=== PATIENT | female | born 1995 | race Caucasian/White ===

== ENCOUNTER 2024-10-16 01:30 | Inpatient (IN) | payer BC ==
[2024-10-16] MEDS ORDERED: Ondansetron PF 4 MG/2 ML Vial IVP PRN (02:07)
[2024-10-16] MEDS ORDERED: Lidocaine 1% (PF) 30 ML VIAL SC PRN (02:07)
[2024-10-16] MEDS ORDERED: HYDROcodone/Acetaminophen 5/325 mg Tablet PO PRN ×4 (02:07→07:56)
[2024-10-16] MEDS ORDERED: hydrALAZINE 20 MG/ML VIAL SLOW IVP PRN ×2 (02:07→07:56)
[2024-10-16] MEDS ORDERED: Tranexamic Acid 1,000 MG/10 ML VIAL IVP PRN (02:07)
[2024-10-16] MEDS ORDERED: Methylergonovine 0.2 MG/ML VIAL IM PRN (02:07)
[2024-10-16] MEDS ORDERED: Ibuprofen 800 MG TAB PO PRN (02:07)
[2024-10-16] MEDS ORDERED: Penicillin G Potassium 5 MILL.UNITS in Sodium Chloride 0.9% 100 ML IVPB SCH (02:15)
[2024-10-16 02:28] LABS: Hematocrit 36.2 % (34.9-44.5); Hemoglobin 12.4 g/dL (12.0-15.5); Mean Corpuscular Hemoglobin 31.1 pg (27.0-33.0); Mean Corpuscular Volume 90.7 fL (81.6-98.3); Platelet Count 152 10x3/uL (150-450); Red Blood Cell (RBC) Count 3.99 10x6/uL (3.90-5.03); White Blood Cell (WBC) Count 9.42 10x3/uL (3.5-10.5)
[2024-10-16 03:00] LABS: Hep B Surf Ag - L&D Non-Reactive S/CO (NonReactive)
[2024-10-16 03:01] LABS: Syphilis Antibody Index 0.03 S/CO (<1.00 Non-Reactive)
[2024-10-16 03:07] VITALS: BMI 31.1
[2024-10-16] MEDS ORDERED: Oxytocin 30 units/NS 500 ML 500 ML IV SCH ×2 (03:15→07:56)
[2024-10-16] MEDS ORDERED: Penicillin G 2.5 MILL.units 2.5 MILL.UNITS in Premix 1 BAG IVPB SCH (06:15)
[2024-10-16] MEDS ORDERED: Milk Of Magnesia 30 ML UDCUP PO PRN (07:56)
[2024-10-16] MEDS ORDERED: Benzocaine-Menthol 82.5 ML CAN TOP PRN (07:56)
[2024-10-16] MEDS ORDERED: Bisacodyl 10 MG SUPP PR PRN (07:56)
[2024-10-16] MEDS ORDERED: Lanolin Ointment 7 GM TUBE TOP PRN (07:56)
[2024-10-16] MEDS: Penicillin G Potassium 5 MILL.UNITS VIAL ONE (08:55)
[2024-10-16] MEDS: Boostrix 0.5 ML (Tdap) VIAL (>/=7 yrs of age) IM ONE (08:56)
[2024-10-16] MEDS: Methylergonovine 0.2 MG/ML VIAL ONE (08:56)
[2024-10-16] MEDS: Ferrous Sulfate 325 MG TAB PO SCH (08:56)
[2024-10-16] MEDS: Ibuprofen 800 MG TAB PO SCH (13:23)
[2024-10-17] MEDS ORDERED: Ondansetron PF 4 MG/2 ML Vial IVP PRN (01:23)
[2024-10-17] MEDS ORDERED: Acetaminophen 325 MG TAB PO PRN (01:23)
[2024-10-17] MEDS ORDERED: diphenhydrAMINE 50 MG/ML VIAL IVP PRN (01:23)
[2024-10-17] MEDS ORDERED: fentaNYL 2 mcg/Ropivacaine 0.2% Epidural 100 ML CADD EPIDURAL SCH (01:30)
[2024-10-17] MEDS ORDERED: Communication Order-Pharmacy FS SCH (01:30)
[2024-10-18 08:17] VITALS: BP 122/76; TEMP 98
== END 2024-10-18 12:15 | disposition home or self-care (01) | DRG 807 ==
LOC: CSHLD/OP 01:30 → CSHLD 03:06 → CSHPP 08:20
PROVIDERS: ADMIT Obstetrics & Gynecology; ATTEND Obstetrics & Gynecology
PROC: 10E0XZZ Delivery of Products of Conception, External Approach (ICD-10-PCS; principal; 2024-10-16)
DX: O99.824 Streptococcus B carrier state complicating childbirth (principal); Z37.0 Single live birth; Z3A.35 35 weeks gestation of pregnancy
CPT/HCPCS: 36415; 85027; 86780; 86850; 86900; 86901; 87340; 99285; J2540; J3010